=== PATIENT | male | born 1945 | race Caucasian/White ===

== ENCOUNTER 2017-04-24 18:23 | Observation (INO) | payer OTHER, MEDICARE ==
[2017-04-24] MEDS ORDERED: Sodium Chloride 0.9% 10 ML Syringe FLUSH PRN (18:24)
[2017-04-24] MEDS ORDERED: Lactated Ringers 1,000 ML IV ONE (18:24)
[2017-04-24] MEDS ORDERED: Ibuprofen 800 MG Tab PO ONE (18:39)
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
[2017-04-24] MEDS ORDERED: Sodium Chloride 0.9% 100 ML ONE (18:44)
[2017-04-24] MEDS: Piperacillin/Tazobactam 4.5 GM in Sodium Chloride 0.9% 100 ML IV SCH (18:59)
[2017-04-24] MEDS ORDERED: Albuterol/Ipratropium 3.0-0.5 MG/3 ML Neb Soln NEB ONE (19:05)
[2017-04-24] MEDS ORDERED: HYDROmorphone 0.5 MG/0.5 ML Syringe IVPUSH ONE (19:08)
[2017-04-24] MEDS ORDERED: Insulin Aspart 100 Units/ML 3 ML Pen SUBCUT ONE (20:22)
[2017-04-24] MEDS ORDERED: Albuterol 8 GM Inhaler INH PRN (20:32)
[2017-04-24] MEDS: Insulin Detemir 100 Units/ML 3 ML Pen SUBCUT SCH (22:27)
[2017-04-24] MEDS: METOPROLOL TARTRATE 50 MG PO SCH (22:28)
[2017-04-24] MEDS: Lactated Ringers 1,000 ML IV SCH (22:30)
[2017-04-24] MEDS: Doxycycline 100 MG in Sodium Chloride 0.9% 100 ML IV SCH (22:32)
[2017-04-25] MEDS: PRAMIPEXOLE 0.25 MG PO SCH ×2 (00:05→20:15)
[2017-04-25] MEDS ORDERED: Piperacillin/Tazobactam 4.5 GM Vial ONE (00:12)
[2017-04-25] MEDS ORDERED: Sodium Chloride 0.9% 100 ML ONE (00:16)
[2017-04-25] MEDS: Piperacillin/Tazobactam 4.5 GM in Sodium Chloride 0.9% 100 ML IV SCH ×2 (00:36→06:24)
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
[2017-04-25] MEDS: traMADol 50 MG Tab PO PRN ×2 (03:51→08:05)
[2017-04-25] MEDS: Ibuprofen 600 MG Tab PO PRN ×2 (03:52→20:35)
[2017-04-25] MEDS: Lactated Ringers 1,000 ML IV SCH ×2 (08:12→18:12)
[2017-04-25] MEDS ORDERED: Lisinopril 20 MG Tab PO SCH (09:00)
[2017-04-25] MEDS ORDERED: IPRATROPIUM EYEBOTH SCH (09:00)
[2017-04-25] MEDS: Lactobacillus Rhamnosus GG (Probiotic) Cap PO SCH (09:28)
[2017-04-25] MEDS: Loratadine 10 MG Tab PO SCH (09:28)
[2017-04-25] MEDS: IPRATROPIUM INH SCH ×2 (09:29→20:19)
[2017-04-25] MEDS: Vitamin B Complex Tab PO SCH (09:31)
[2017-04-25] MEDS: Doxycycline 100 MG in Sodium Chloride 0.9% 100 ML IV SCH ×3 (10:31→22:07)
[2017-04-25] MEDS ORDERED: Piperacillin/Tazobactam/Dext 4.5 GM in Premix Bag 1 BAG IV SCH (12:00)
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
[2017-04-25] MEDS: Insulin Aspart 100 Units/ML 3 ML Pen SUBCUT SCH ×3 (12:54→20:22)
[2017-04-25] MEDS: METOPROLOL TARTRATE 50 MG PO SCH ×2 (13:01→20:13)
[2017-04-25] MEDS: Multivitamins with Iron/Calcium/Folic Acid/Minerals Tab PO SCH (13:01)
[2017-04-25] MEDS: oxyCODONE 5 MG Tab PO PRN ×3 (13:04→22:41)
[2017-04-25] MEDS: Bacitracin Oint 28.35 GM Tube TOP SCH ×2 (13:04→20:18)
[2017-04-25] MEDS: Acetaminophen 500 MG Tab PO SCH ×2 (13:34→20:05)
[2017-04-25] MEDS: Magnesium Oxide 400 MG Tab PO SCH (13:34)
[2017-04-25] MEDS: ATORVASTATIN 20 MG PO SCH (20:12)
[2017-04-25] MEDS: TRAZODONE 50 MG PO SCH (20:12)
[2017-04-25] MEDS: amLODIPine 10 MG Tab**POM PO SCH (20:16)
[2017-04-25] MEDS: LATANOPROST EYEBOTH SCH (20:17)
[2017-04-25] MEDS: Insulin Detemir 100 Units/ML 3 ML Pen SUBCUT SCH (20:23)
[2017-04-26] MEDS: Lactated Ringers 1,000 ML IV SCH ×2 (03:06→11:10)
[2017-04-26] MEDS: oxyCODONE 5 MG Tab PO PRN ×4 (03:11→19:39)
[2017-04-26] MEDS: Ibuprofen 600 MG Tab PO PRN (03:12)
[2017-04-26] MEDS: IPRATROPIUM INH SCH ×2 (07:17→21:26)
[2017-04-26] MEDS: Lactobacillus Rhamnosus GG (Probiotic) Cap PO SCH (08:47)
[2017-04-26] MEDS: Magnesium Oxide 400 MG Tab PO SCH (08:47)
[2017-04-26] MEDS: Loratadine 10 MG Tab PO SCH (08:47)
[2017-04-26] MEDS: Vitamin B Complex Tab PO SCH (08:47)
[2017-04-26] MEDS: LISINOPRIL 40 MG PO SCH (08:47)
[2017-04-26] MEDS: Acetaminophen 500 MG Tab PO SCH ×3 (08:47→21:32)
[2017-04-26] MEDS: METOPROLOL TARTRATE 50 MG PO SCH ×2 (08:48→21:29)
[2017-04-26] MEDS: Bacitracin Oint 28.35 GM Tube TOP SCH ×2 (08:48→21:25)
[2017-04-26] MEDS: Insulin Aspart 100 Units/ML 3 ML Pen SUBCUT SCH ×4 (08:49→21:20)
[2017-04-26] MEDS ORDERED: Potassium Chloride 20 MEQ Tab.ER PO ONE (10:00)
[2017-04-26] MEDS: Doxycycline 100 MG in Sodium Chloride 0.9% 100 ML IV SCH (10:14)
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
[2017-04-26] MEDS: Multivitamins with Iron/Calcium/Folic Acid/Minerals Tab PO SCH (12:18)
[2017-04-26] MEDS: Insulin Detemir 100 Units/ML 3 ML Pen SUBCUT SCH (21:27)
[2017-04-26] MEDS: ATORVASTATIN 20 MG PO SCH (21:28)
[2017-04-26] MEDS: PRAMIPEXOLE 0.25 MG PO SCH (21:30)
[2017-04-26] MEDS: TRAZODONE 50 MG PO SCH (21:31)
[2017-04-26] MEDS: amLODIPine 10 MG Tab**POM PO SCH (21:32)
[2017-04-26] MEDS: Doxycycline 100 MG Cap PO SCH (21:32)
[2017-04-26] MEDS: LATANOPROST EYEBOTH SCH (21:33)
[2017-04-27] MEDS: oxyCODONE 5 MG Tab PO PRN ×3 (01:53→13:41)
[2017-04-27] MEDS: IPRATROPIUM INH SCH (07:30)
[2017-04-27] MEDS: Insulin Aspart 100 Units/ML 3 ML Pen SUBCUT SCH ×3 (07:47→17:11)
[2017-04-27] MEDS: Bacitracin Oint 28.35 GM Tube TOP SCH (09:08)
[2017-04-27] MEDS: METOPROLOL TARTRATE 50 MG PO SCH (09:08)
[2017-04-27] MEDS: Lactobacillus Rhamnosus GG (Probiotic) Cap PO SCH (09:11)
[2017-04-27] MEDS: Loratadine 10 MG Tab PO SCH (09:12)
[2017-04-27] MEDS: LISINOPRIL 40 MG PO SCH (09:12)
[2017-04-27] MEDS: Magnesium Oxide 400 MG Tab PO SCH (09:12)
[2017-04-27] MEDS: Multivitamins with Iron/Calcium/Folic Acid/Minerals Tab PO SCH (09:13)
[2017-04-27] MEDS: Doxycycline 100 MG Cap PO SCH (09:14)
[2017-04-27] MEDS: Vitamin B Complex Tab PO SCH (09:14)
[2017-04-27] MEDS: Acetaminophen 500 MG Tab PO SCH ×2 (09:14→13:40)
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
[2017-04-27 17:50] VITALS: BP 140/68
--- NOTE | 2017-04-28 08:09 | CR ---
Chest 1V Frontal HISTORY: Fever, shortness of breath. COMPARISON: CT scan 04/23/2017 FINDINGS: There is mild cardiomegaly. Borderline congestive change. No dense infiltrate or effusion.
== END 2017-04-27 17:54 | disposition home or self-care (01) ==
LOC: JP.ED 18:23 → JP.MS 20:27
PROVIDERS: ADMIT Family Medicine; ATTEND Internal Medicine
DX: A77.49 Other ehrlichiosis (principal); I10 Essential (primary) hypertension; E11.9 Type 2 diabetes mellitus without complications; E78.5 Hyperlipidemia, unspecified; J44.9 Chronic obstructive pulmonary disease, unspecified; G47.33 Obstructive sleep apnea (adult) (pediatric); V89.2XXA Person injured in unspecified motor-vehicle accident, traffic, initial encounter; Z79.4 Long term (current) use of insulin; Z79.899 Other long term (current) drug therapy; Z79.2 Long term (current) use of antibiotics; Z95.5 Presence of coronary angioplasty implant and graft; F17.210 Nicotine dependence, cigarettes, uncomplicated; R06.02 Shortness of breath
CPT/HCPCS: 36415; 36600; 71010; 80048; 80053; 81001; 82803; 82962; 83605; 83880; 84484; 85025; 85027; 86140; 86618; 86666; 86753; 94640; 96361; 96365; 96366; 96367; 96375; 99285; A9270; G0378; J1170; J2543; J7030; J7050; J7120; J7620; 99217; 99224; 99225

== ENCOUNTER 2019-03-31 10:53 | Emergency (ER) | payer MEDICARE, BC ==
[2019-03-31] MEDS ORDERED: HYDROmorphone 0.5 MG/0.5 ML Syringe IVPUSH ONE ×3 (11:17→14:53)
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
--- NOTE | 2019-03-31 11:45 | CRLCR ---
INDICATION: Fall with left hip pain. TECHNIQUE: AP view pelvis, 2 views of the left hip. COMPARISON: None. FINDINGS: Hardware components of left total hip arthroplasty. Subtrochanteric obliquely oriented periprosthetic left femur fracture. Mild lateral displacement of the distal fracture fragment measuring approximately 1 cm. No evidence of dislocation of the left hip joint. Moderate to severe right hip joint space narrowing and osteophyte formation. Surgical clips project over the pelvis. Bones are demineralized. IMPRESSION: Periprosthetic subtrochanteric left femur fracture as above. Dictated by Keshawn De La Cruz MD @ Mar 31 2019 11:40AM Signed by Dr. Keshawn De La Cruz @ Mar 31 2019 11:44AM
[2019-03-31 14:40] VITALS: PULSE 47
[2019-03-31 15:13] VITALS: BP 158/56
== END 2019-03-31 15:35 | disposition other institution (70) ==
LOC: JP.ED 10:53
DX: T84.011A Broken internal left hip prosthesis, initial encounter (principal); I10 Essential (primary) hypertension; J44.9 Chronic obstructive pulmonary disease, unspecified; E11.9 Type 2 diabetes mellitus without complications; Z79.4 Long term (current) use of insulin; Z79.51 Long term (current) use of inhaled steroids; W18.2XXA Fall in (into) shower or empty bathtub, initial encounter
CPT/HCPCS: 36415; 51702; 73502; 80053; 85025; 96374; 96376; 99284; J1170

== ENCOUNTER 2019-04-26 16:30 | Inpatient (IN) | payer MEDICARE, BC ==
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
--- NOTE | 2019-04-26 17:56 | CRLCR ---
Indication: Injury and pain Technique: Left hip 3 views Comparison: April 22, 2019 Findings: Bones: Hardware from a left hip arthroplasty remains in satisfactory position. Again demonstrated is an incompletely healed subtrochanteric fracture. Subtle nondisplaced fracture adjacent to the tip of the intramedullary jacqueline is unchanged. No new or worsening fracture. Alignment is normal. Soft tissues: Unremarkable. Impression: No new abnormality and no change from the prior exam. Dictated by Bruce Rosado MD @ Apr 26 2019 5:50PM Signed by Dr. Bruce Rosado @ Apr 26 2019 5:54PM
== END 2019-04-26 17:30 | DRG 914 ==
LOC: JP.MS 16:30
PROVIDERS: ADMIT Internal Medicine; ATTEND Internal Medicine
DX: S79.912A Unspecified injury of left hip, initial encounter (principal); E78.00 Pure hypercholesterolemia, unspecified; I10 Essential (primary) hypertension; J44.9 Chronic obstructive pulmonary disease, unspecified; M19.90 Unspecified osteoarthritis, unspecified site; H54.7 Unspecified visual loss; F17.210 Nicotine dependence, cigarettes, uncomplicated; G47.30 Sleep apnea, unspecified; G89.29 Other chronic pain; W05.0XXA Fall from non-moving wheelchair, initial encounter; M54.9 Dorsalgia, unspecified; E11.9 Type 2 diabetes mellitus without complications; Z79.4 Long term (current) use of insulin; Z79.899 Other long term (current) drug therapy; Z86.73 Personal history of transient ischemic attack (TIA), and cerebral infarction without residual deficits; Z95.5 Presence of coronary angioplasty implant and graft; Z88.8 Allergy status to other drugs, medicaments and biological substances; Z88.5 Allergy status to narcotic agent; Z88.6 Allergy status to analgesic agent
CPT/HCPCS: 36415; 73502-LT; 80053; 85025

== ENCOUNTER 2019-08-01 08:11 | Emergency (ER) | payer OTHER ==
--- NOTE | 2019-08-01 08:24 | EDM.PDOC ---
ED HPI GENERAL MEDICAL PROBLEM - General Chief Complaint: Lower Extremity Injury/Pain Stated Complaint: FELL AT HOME Time Seen by Provider: 08/01/19 08:11 Source of Information: Reports: Patient, EMS History Limitations: Reports: No Limitations - History of Present Illness INITIAL COMMENTS - FREE TEXT/NARRATIVE: 73-year-old male with left hip pain after falling in the shower. He has apparent deformity of the left lower extremity and severe pain just below the left hip. No other injury. Onset: Sudden Duration: Hour(s): (Within the last 2 hours) Location: Reports: Lower Extremity, Left Associated Symptoms: Reports: Confusion Left Hip Pain Score (Numeric/FACES): 8 - Related Data Allergies Allergy/AdvReac Type Severity Reaction Status Date / Time No Known Allergies Allergy Verified 08/01/19 08:22 Home Meds: Home Meds Albuterol [Ventolin HFA] 2 puff INH Q4H PRN 11/21/14 [History] Insulin Glarg,Human.Rec.Analog [Lantus Solostar] 30 unit SUBCUT BEDTIME [History] Lisinopril 20 mg PO DAILY 11/21/14 [History] Metoprolol Tartrate 50 mg PO BID 11/21/14 [History] amLODIPine [Norvasc] 10 mg PO BEDTIME 11/21/14 [History] atorvaSTATin [Lipitor] 40 mg PO BEDTIME 11/21/14 [History] Latanoprost [Xalatan 0.005% Ophth Soln] 1 drop EYEBOTH DAILY 04/23/17 [History] Nitroglycerin 0.4 mg SL ASDIRECTED PRN 11/05/18 [History] Pramipexole Di-HCl [Mirapex] 0.25 mg PO DAILY 11/05/18 [History] traZODone HCl [Trazodone HCl] 50 mg PO DAILY 11/05/18 [History] *Potassium Chloride 99 mg PO BID 08/01/19 [History] Aspirin [Halfprin] 1 tab PO BEDTIME 08/01/19 [History] Budesonide/Formoterol [Symbicort 80-4.5 MCG] 2 puff INH BID 08/01/19 [History] Cholecalciferol (Vitamin D3) [Vitamin D3] 1 tab PO DAILY 08/01/19 [History] Escitalopram [Lexapro] 5 mg PO BEDTIME 08/01/19 [History] Furosemide [Lasix] 20 mg PO DAILY 08/01/19 [History] Glucosam/Chond/Collagen/Hyalur [Glucosamine Chondroitin] 2 cap PO DAILY [History] Multivitamin [Multivitamins] 1 tab PO DAILY 08/01/19 [History] Naproxen 1 tab PO BID PRN 08/01/19 [History] Vitamin B Complex [Super B-50 Complex] 1 cap PO DAILY 08/01/19 [History] Past Medical History HEENT History: Reports: Cataract, Glaucoma, Hard of Hearing, Impaired Vision Cardiovascular History: Reports: High Cholesterol, Hypertension Respiratory History: Reports: COPD, Sleep Apnea Gastrointestinal History: Reports: None Musculoskeletal History: Reports: Back Pain, Chronic, Osteoarthritis, Other ( See Below) Other Musculoskeletal History: L hip pain Neurological History: Reports: CVA Psychiatric History: Reports: None Endocrine/Metabolic History: Reports: Diabetes, Type II Hematologic History: Reports: None Immunologic History: Reports: None Oncologic (Cancer) History: Reports: Colon, Metastatic, Prostate, Renal Dermatologic History: Reports: None - Past Surgical History Head Surgeries/Procedures: Reports: None HEENT Surgical History: Reports: Cataract Surgery Cardiovascular Surgical History: Reports: Coronary Artery Stent GI Surgical History: Reports: Colonoscopy, ERCP Male Surgical History: Reports: Other (See Below) Musculoskeletal Surgical History: Reports: Hip Replacement Social & Family History - Caffeine Use Caffeine Use: Reports: Coffee Review of Systems - Review of Systems Review Of Systems: See Below Constitutional: Denies: Fever Respiratory: Denies: Shortness of Breath Cardiovascular: Denies: Chest Pain, Palpitations Musculoskeletal: Reports: Other (Severe left hip and leg pain, especially with movement) Skin: Denies: Bruising ED EXAM, GENERAL - Physical Exam Exam: See Below Exam Limited By: No Limitations General Appearance: Alert, Moderate Distress (Moderate to severe distress with any movement, fairly comfortable when lying still) Respiratory/Chest: No Respiratory Distress Cardiovascular: Regular Rate, Rhythm GI/Abdominal: Soft, Non-Tender Extremities: Other (Left leg shows internal rotation and slight shortening, severe tenderness to any palpation of the mid to upper femur left side) Course - Vital Signs Last Recorded V/S: Last Vital Signs Temp 97.3 F 08/01/19 08:22 Pulse 83 08/01/19 10:14 Resp 16 08/01/19 10:14 BP 143/66 H 08/01/19 10:14 Pulse Ox 92 L 08/01/19 10:14 - Orders/Labs/Meds Meds: Medications Discontinued Medications Generic Name Dose Route Start Last Admin Trade Name Anastasia PRN Reason Stop Dose Admin Hydromorphone HCl 1 mg 08/01/19 09:34 08/01/19 09:43 Dilaudid IVPUSH 08/01/19 09:35 1 mg ONETIME ONE Administration - Re-Assessments/Exams Free Text/Narrative Re-Assessment/Exam: 08/01/19 08:52 X-ray confirmed a new spiral fracture through the femur at the distal and of his prosthesis. These films were reviewed by our orthopedic surgeon Dr. Pope. 08/01/19 10:16 Our facility does not have the proper orthopedic supplies to complete the surgery. [facility] in [place] was contacted, Dr. Robertson kindly accepted his transfer at 09:55, he will be reevaluated in the emergency room prior to admission for orthopedic assessment and care. An additional 1 mg of IV Dilaudid was needed. Departure - Departure Time of Disposition: 10:59 Disposition: DC/Tfer to Other Clinical Impression: Periprosthetic fracture of hip Qualifiers: Encounter type: initial encounter Qualified Code(s): M97.8XXA - Periprosthetic fracture around other internal prosthetic joint, initial encounter - Discharge Information Referrals: PCP,None [Primary Care Provider] - Forms: ED Department Discharge Care Plan Goals: Patient is to be transferred by EMS to [facility] for orthopedic evaluation and definitive care for a spiral left femur fracture, periprosthetic.
--- NOTE | 2019-08-01 09:31 | CR ---
Hip Min 2V or 3V Lt CLINICAL HISTORY: Left hip pain FINDINGS: Patient has a total left hip arthroplasty. There has been revision with a subtrochanteric fracture that was reduced. The there is now a new oblique displaced fracture of the mid femur towards the distal aspect of the intramedullary jacqueline IMPRESSION: New oblique displaced fracture through the mid femoral shaft near the distal aspect of the intramedullary jacqueline.
[2019-08-01] MEDS ORDERED: HYDROmorphone 1 MG/ML Syringe IVPUSH ONE (09:34)
[2019-08-01 10:15] VITALS: BP 143/66; PULSE 83
== END 2019-08-01 11:00 | disposition other institution (70) ==
LOC: JP.ED 08:11
DX: M97.8XXA Periprosthetic fracture around other internal prosthetic joint, initial encounter (principal); I10 Essential (primary) hypertension; E03.9 Hypothyroidism, unspecified; E11.9 Type 2 diabetes mellitus without complications; J44.9 Chronic obstructive pulmonary disease, unspecified; Z79.51 Long term (current) use of inhaled steroids; Z79.899 Other long term (current) drug therapy
CPT/HCPCS: 73502; 96374; 99285; J1170

== ENCOUNTER 2020-06-21 11:25 | Emergency (ER) | payer BC, MEDICARE, OTHER ==
[2020-06-21 11:44] VITALS: BP 167/89; PULSE 72
[2020-06-21] MEDS ORDERED: HYDROmorphone 1 MG/ML Syringe IM ONE (12:09)
--- NOTE | 2020-06-21 13:07 | EDM.PDOC ---
ED HPI GENERAL MEDICAL PROBLEM - General Chief Complaint: Back Pain or Injury Stated Complaint: BACK PAIN Time Seen by Provider: 06/21/20 11:50 Source of Information: Reports: Patient, Family History Limitations: Reports: Other (Patient has Alzheimer's dementia limiting the full scope of his history.) - History of Present Illness INITIAL COMMENTS - FREE TEXT/NARRATIVE: Nadir is a 74-year-old male who is a [facility] patient presenting to the ED for evaluation of low back pain. The patient reportedly had a fall 3 weeks ago resulting in acute low back pain that has been migrating between the lumbar and thoracic spine and worsening. The patient has Alzheimer's dementia limiting his reporting of pain, however, his daughter accompanies him and states that he has been having increasing pain especially in the low back since the fall. The patient cries out with any jarring movements like hitting bumps in the vehicle. He has not had any change of bowel or bladder control issues. He normally attends the [facility], however, they referred him to the local ER for evaluation. The patient does have a history of radiation to the lower spine for prostate cancer. The daughter is also concerned that perhaps there is metastasis of the prostate cancer to the lumbar spine causing the pain. He denies any numbness or tingling in the legs. He denies any weakness of the leg s. He denies any saddle anesthesia. He denies any other injury from the fall. Context: Reports: Trauma - Related Data Allergies Allergy/AdvReac Type Severity Reaction Status Date / Time No Known Allergies Allergy Verified 06/21/20 11:48 Home Meds: Home Meds Albuterol [Ventolin HFA] 2 puff INH Q4H PRN 11/21/14 [History] Insulin Glarg,Human.Rec.Analog [Lantus Solostar] 30 unit SUBCUT BEDTIME 11/21/14 [History] Lisinopril 10 mg PO DAILY 11/21/14 [History] Metoprolol Tartrate 100 mg PO BID 11/21/14 [History] amLODIPine [Norvasc] 5 mg PO BEDTIME 11/21/14 [History] atorvaSTATin [Lipitor] 80 mg PO BEDTIME 11/21/14 [History] Latanoprost [Xalatan 0.005% Ophth Soln] 1 drop EYEBOTH DAILY 04/23/17 [History] Nitroglycerin 0.4 mg SL ASDIRECTED PRN 11/05/18 [History] Pramipexole Di-HCl [Mirapex] 0.25 mg PO DAILY 11/05/18 [History] traZODone HCl [Trazodone HCl] 100 mg PO DAILY 11/05/18 [History] *Potassium Chloride 99 mg PO DAILY 08/01/19 [History] Aspirin [Halfprin] 81 mg PO BEDTIME 08/01/19 [History] Budesonide/Formoterol [Symbicort 80-4.5 MCG] 2 puff INH BID 08/01/19 [History] Cholecalciferol (Vitamin D3) [Vitamin D3] 6,000 unit PO DAILY 08/01/19 [History] Escitalopram [Lexapro] 10 mg PO BEDTIME 08/01/19 [History] Furosemide [Lasix] 20 mg PO DAILY 08/01/19 [History] Glucosam/Chond/Collagen/Hyalur [Glucosamine Chondroitin] 1 cap PO DAILY 08/01/19 [History] Multivitamin [Multivitamins] 1 tab PO DAILY 08/01/19 [History] Naproxen 1 tab PO BID PRN 08/01/19 [History] Vitamin B Complex [Super B-50 Complex] 1 cap PO DAILY 08/01/19 [History] Acetaminophen [Tylenol Extra Strength] 1,000 mg PO Q6H PRN 09/19/19 [History] Calcium Carbonate/Vitamin D3 [Calcium 600 + Vit D 200] 1 tab PO DAILY 09/19/19 [History] Clopidogrel [Plavix] 75 mg PO DAILY 09/19/19 [History] Leuprolide [Lupron Depot] 22.5 mg IM .EVERY 6 MONTHS 09/19/19 [History] Lidocaine [Lidoderm] 1 patch TOP Q12H 09/19/19 [History] Loperamide [Imodium] 2 mg PO ASDIRECTED 09/19/19 [History] Cyclobenzaprine HCl 10 mg PO Q8HR PRN 30 Days #30 tablet 06/21/20 [Rx] Past Medical History HEENT History: Reports: Cataract, Glaucoma, Hard of Hearing, Impaired Vision Cardiovascular History: Reports: High Cholesterol, Hypertension, Stents Respiratory History: Reports: COPD, Sleep Apnea Gastrointestinal History: Reports: None Genitourinary History: Reports: Urinary Incontinence Musculoskeletal History: Reports: Back Pain, Chronic, Osteoarthritis, Other (See Below) Other Musculoskeletal History: L hip pain Neurological History: Reports: Alzheimers Disease, CVA, Other (See Below) Other Neuro History: dementia Psychiatric History: Reports: None Endocrine/Metabolic History: Reports: Diabetes, Type II Hematologic History: Reports: Anticoagulation Therapy, Blood Transfusion(s) Immunologic History: Reports: None Oncologic (Cancer) History: Reports: Colon, Metastatic, Prostate, Renal Dermatologic History: Reports: None - Past Surgical History Head Surgeries/Procedures: Reports: None HEENT Surgical History: Reports: Cataract Surgery Cardiovascular Surgical History: Reports: Coronary Artery Stent Respiratory Surgical History: Reports: None GI Surgical History: Reports: Colonoscopy, ERCP Endocrine Surgical History: Reports: None Musculoskeletal Surgical History: Reports: Hip Replacement Other Musculoskeletal Surgeries/Procedures:: left hip and femur ORIF Oncologic Surgical History: Reports: None Dermatological Surgical History: Reports: None Social & Family History - Tobacco Use Tobacco Use Status *Q: Current Every Day Tobacco User Years of Tobacco use: 60 Packs/Tins Daily: 1 Used Tobacco, but Quit: No Second Hand Smoke Exposure: No - Caffeine Use Caffeine Use: Reports: Coffee Other Caffeine Use: 2 cups - Alcohol Use Days Per Week of Alcohol Use: 7 Number of Drinks Per Day: 2 Total Drinks Per Week: 14 - Recreational Drug Use Recreational Drug Use: No ED ROS GENERAL - Review of Systems Review Of Systems: See Below Constitutional: Reports: No Symptoms HEENT: Reports: No Symptoms Respiratory: Reports: No Symptoms Cardiovascular: Reports: No Symptoms Endocrine: Reports: No Symptoms GI/Abdominal: Reports: No Symptoms : Reports: No Symptoms Musculoskeletal: Reports: Back Pain (Migrating from the lumbar spine to thoracic spine. The initial injury involve the lumbar spine.) Skin: Reports: No Symptoms Neurological: Reports: Other (Dementia, Alzheimer's type.) Psychiatric: Reports: No Symptoms Hematologic/Lymphatic: Reports: No Symptoms Immunologic: Reports: No Symptoms ED EXAM,LOWER BACK PAIN/INJURY - Physical Exam Exam: See Below Exam Limited By: No Limitations General Appearance: Alert, Moderate Distress Eye Exam: Bilateral Eye: EOMI, PERRL Head: Atraumatic, Normocephalic Neck: Normal Inspection, Supple, Non-Tender, Full Range of Motion Respiratory/Chest: No Respiratory Distress, Lungs Clear, Normal Breath Sounds, No Accessory Muscle Use, Chest Non-Tender Cardiovascular: Normal Peripheral Pulses, Regular Rate, Rhythm, No JVD, No Murmur Back Exam: Decreased Range of Motion (Due to pain and muscle spasm), Muscle Spasm, Paraspinal Tenderness, Vertebral Tenderness (Involving the lower 3-4 lumbar vertebrae. Significant paraspinal muscle spasm and tenderness as well.) Extremities: Normal Inspection, Normal Range of Motion, No Pedal Edema Neurological: Alert, Normal Mood/Affect, Normal Dorsiflexion, CN II-XII Intact, Normal Plantar Flexion, No Motor/Sensory Deficits, Oriented x 3, Abnormal Gait (Antalgic gait) Psychiatric: Normal Affect, Normal Mood Skin Exam: Warm, Dry, Intact Lymphatic: No Adenopathy Course - Vital Signs Last Recorded V/S: Last Vital Signs Temp 36.4 C 06/21/20 11:48 Pulse 72 06/21/20 11:48 Resp 16 06/21/20 11:48 BP 167/89 H 06/21/20 11:48 Pulse Ox 98 06/21/20 11:48 - Orders/Labs/Meds Meds: Medications Discontinued Medications Generic Name Dose Route Start Last Admin Trade Name Freq PRN Reason Stop Dose Admin Hydromorphone HCl 1 mg 06/21/20 12:09 06/21/20 12:12 Dilaudid IM 06/21/20 12:10 1 mg ONETIME ONE Administration - Radiology Interpretation Free Text/Narrative:: CT of the lumbar spine demonstrated significant central spinal stenosis at L1- L2, mild central stenosis L2-L3, L3-L4, and L4-L5 with moderate central stenosis at L5-S1. In addition, there is significant neuroforaminal impingement at L4- L5 and L5-S1 bilaterally. No acute fractures identified. No compression/wedging noted in the vertebrae. Departure - Departure Time of Disposition: 16:29 Disposition: Home, Self-Care 01 Condition: Good Clinical Impression: Spinal stenosis of lumbar region, Lumbar disc disease with radiculopathy - Discharge Information *PRESCRIPTION DRUG MONITORING PROGRAM REVIEWED*: Not Applicable *COPY OF PRESCRIPTION DRUG MONITORING REPORT IN PATIENT VENUS: Not Applicable Prescriptions: Cyclobenzaprine HCl 10 mg PO Q8HR PRN 30 Days #30 tablet PRN Reason: Muscle Spasm Instructions: Spinal Stenosis, Lumbosacral Radiculopathy Referrals: Germán Antoine Sr, MD [Primary Care Provider] - Forms: ED Department Discharge Care Plan Goals: Please stop the trazodone. We will use a cyclobenzaprine 10 mg every 8 hours as needed for muscle spasm control. This may make him somnolent. I had like him to follow-up with Dr. Antoine as needed. You may double up on the use of the Lidoderm patch. Should he develop any significant weakness, numbness or tingling, or worsening please return to the ED for reevaluation. Sepsis Event Note (ED) - Evaluation Sepsis Screening Result: No Definite Risk - Focused Exam Vital Signs: Vital Signs Temp Pulse Resp BP Pulse Ox 06/21/20 11:48 36.4 C 72 16 167/89 H 98 06/21/20 11:42 36.4 C 72 16 167/89 H 98 - Problem List & Annotations (1) Lumbar disc disease with radiculopathy SNOMED Code(s): 034647262 Code(s): M51.16 - INTERVERTEBRAL DISC DISORDERS W RADICULOPATHY, LUMBAR REGION Status: Acute Priority: Medium Current Visit: Yes (2) Spinal stenosis of lumbar region SNOMED Code(s): 04877401 Code(s): M48.061 - SPINAL STENOSIS, LUMBAR REGION WITHOUT NEUROGENIC DONTRELL Status: Acute Priority: Medium Current Visit: Yes Qualifiers: Neurogenic claudication status: unspecified Qualified Code(s): M48.061 - Spinal stenosis, lumbar region without neurogenic claudication - Problem List Review Problem List Initiated/Reviewed/Updated: Yes - Assessment/Plan Plan: We will initiate antispasmodic therapy with cyclobenzaprine 10 mg every 8 hours as needed. This will take place of the trazodone that the patient uses at nighttime for sleep. In addition, I instructed the patient to double up on the use of the Lidoderm patches to get better coverage of the area of pain. Indications return to the ED were discussed. This time patient stable for discharge in satisfactory condition.
--- NOTE | 2020-06-21 13:48 | CT ---
Lumbar Spine wo Cont CLINICAL HISTORY: Increasing back pain, previous fall COMPARISON: None available TECHNIQUE: Multiple contiguous axial sections were obtained of the lumbar spine without the IV infusion of contrast material This was followed by sagittal and coronal MPRs. Auto dosage reduction and iterative reconstruction techniques employed. FINDINGS: Sagittal images show the lumbar vertebral body heights to be maintained throughout. There is some spondylosis most notable at L2-3. Alignment is maintained. Axial images show moderate concentric disc bulging at L1-2 with some facet hypertrophy. This causes moderate central canal stenosis. There is diffuse bulging of the L2-3 disc with facet hypertrophy causing mild central canal stenosis. There is concentric disc bulging at L3-4 with facet hypertrophy causing mild central canal stenosis. There is concentric disc bulging at L4-5 with facet hypertrophy causing moderate central canal stenosis and encroachment on the neural foramina bilaterally. There is concentric disc bulging at L5-S1 with facet hypertrophy causing mild central canal stenosis with encroachment on the lateral recesses and neural foramina greater on the right. Incidental note of moderate atheromatous changes in the aorta. IMPRESSION: No fracture or dislocation Diffuse degenerative disc disease and facet osteoarthropathy Multiple levels of central canal stenosis as well as lateral recess and neural foraminal encroachment
== END 2020-06-21 16:40 | disposition home or self-care (01) ==
LOC: JP.ED 11:25
DX: M48.061 Spinal stenosis, lumbar region without neurogenic claudication (principal); M51.16 Intervertebral disc disorders with radiculopathy, lumbar region; E78.00 Pure hypercholesterolemia, unspecified; I10 Essential (primary) hypertension; J44.9 Chronic obstructive pulmonary disease, unspecified; M19.90 Unspecified osteoarthritis, unspecified site; G30.9 Alzheimer's disease, unspecified; F02.80 Dementia in other diseases classified elsewhere, unspecified severity, without behavioral disturbance, psychotic disturbance, mood disturbance, and anxiety; E11.9 Type 2 diabetes mellitus without complications; F17.210 Nicotine dependence, cigarettes, uncomplicated; Z95.5 Presence of coronary angioplasty implant and graft; Z86.73 Personal history of transient ischemic attack (TIA), and cerebral infarction without residual deficits; Z79.4 Long term (current) use of insulin; Z79.82 Long term (current) use of aspirin; Z79.899 Other long term (current) drug therapy
CPT/HCPCS: 72131; 96372; 99283; J1170

== ENCOUNTER 2022-09-08 13:29 | Emergency (ER) | payer OTHER ==
[2022-09-08] MEDS ORDERED: Albuterol/Ipratropium 3.0-0.5 MG/3 ML Neb Soln NEB ONE (14:51)
[2022-09-08] MEDS ORDERED: Furosemide 40 MG/4 ML VIAL IVPUSH ONE (14:51)
[2022-09-08 14:55] LABS: CORONAVIRUS COVID-19 NAA POSITIVE (NEGATIVE)
[2022-09-08 17:42] VITALS: BP 144/72; PULSE 91
== END 2022-09-08 22:34 | disposition home or self-care (01) ==
LOC: JP.ED 13:29
DX: U07.1 COVID-19 (principal); J44.9 Chronic obstructive pulmonary disease, unspecified; I11.0 Hypertensive heart disease with heart failure; I50.21 Acute systolic (congestive) heart failure; G30.9 Alzheimer's disease, unspecified; F02.C0 Dementia in other diseases classified elsewhere, severe, without behavioral disturbance, psychotic disturbance, mood disturbance, and anxiety; C80.1 Malignant (primary) neoplasm, unspecified; R09.02 Hypoxemia; E78.00 Pure hypercholesterolemia, unspecified; M19.90 Unspecified osteoarthritis, unspecified site; E11.9 Type 2 diabetes mellitus without complications; Z87.891 Personal history of nicotine dependence; Z79.01 Long term (current) use of anticoagulants; Z79.4 Long term (current) use of insulin; Z79.899 Other long term (current) drug therapy; Z79.82 Long term (current) use of aspirin
CPT/HCPCS: 0241U; 36415; 36600; 71045; 80048; 82803; 83880; 85025; 93005; 94640; 96374; 99285; J1940; J7620

== ENCOUNTER 2022-10-02 08:08 | Emergency (ER) | payer OTHER ==
[2022-10-02] MEDS ORDERED: HYDROmorphone 0.5 MG/0.5 ML Syringe IVPUSH ONE ×2 (08:14→09:45)
[2022-10-02 11:08] VITALS: BP 142/68; PULSE 90
== END 2022-10-02 10:45 | disposition other institution (70) ==
LOC: JP.ED 08:08
DX: S72.141A Displaced intertrochanteric fracture of right femur, initial encounter for closed fracture (principal); J44.9 Chronic obstructive pulmonary disease, unspecified; I25.10 Atherosclerotic heart disease of native coronary artery without angina pectoris; I10 Essential (primary) hypertension; E11.9 Type 2 diabetes mellitus without complications; M19.90 Unspecified osteoarthritis, unspecified site; Z79.4 Long term (current) use of insulin; W06.XXXA Fall from bed, initial encounter
CPT/HCPCS: 36415; 73502; 80048; 85025; 96374; 96376; 99285; J1170

== ENCOUNTER 2022-10-29 18:51 | Inpatient (IN) | payer OTHER, MEDICARE ==
[2022-10-29 19:57] LABS: ESTIMATED GFR 77 mL/min (>60)
[2022-10-29] MEDS ORDERED: Sodium Chloride 0.9% 1,000 ML IV SCH (20:15)
[2022-10-29] MEDS ORDERED: cefTRIAXone 1 GM in Sodium Chloride 0.9% 50 ML IV ONE (20:35)
[2022-10-29] MEDS ORDERED: 50% Dextrose in Water 50 ML Syringe IVPUSH PRN (21:33)
[2022-10-29] MEDS ORDERED: Nitroglycerin 0.4 MG Tab.SL SL PRN (21:33)
[2022-10-29] MEDS ORDERED: Glucagon,Human Recombinant 1 MG Vial IM PRN (21:33)
[2022-10-29] MEDS ORDERED: Albuterol 90 MCG/6.7 GM Inhaler INH PRN (21:33)
[2022-10-29] MEDS ORDERED: Clotrimazole 1% Crm 30 GM Tube TOP SCH (21:45)
[2022-10-29] MEDS: cefTRIAXone 1 GM in Sodium Chloride 0.9% 50 ML IV SCH (22:31)
[2022-10-30] MEDS: Lidocaine 5% 700 MG Patch TOP SCH ×2 (03:35→21:21)
[2022-10-30] MEDS: Cyclobenzaprine 10 MG Tab PO PRN ×2 (03:45→15:49)
[2022-10-30] MEDS ORDERED: HYDROmorphone 0.5 MG/0.5 ML Syringe IVPUSH ONE (03:49)
[2022-10-30] MEDS ORDERED: HYDROmorphone 0.5 MG/0.5 ML Syringe ONE (03:51)
[2022-10-30] MEDS: Albuterol/Ipratropium 3.0-0.5 MG/3 ML Neb Soln INH PRN (04:04)
[2022-10-30] MEDS ORDERED: Furosemide 20 MG/2 ML VIAL IVPUSH ONE (04:16)
[2022-10-30] MEDS ORDERED: Acetaminophen 325 MG Tab PO ONE (04:28)
[2022-10-30] MEDS ORDERED: Sodium Chloride 0.9% 1,000 ML IV SCH (04:30)
[2022-10-30] MEDS ORDERED: Ibuprofen 400 MG Tab PO ONE (05:03)
[2022-10-30 05:14] LABS: ESTIMATED GFR 94 mL/min (>60)
[2022-10-30] MEDS: Formoterol/Mometasone 200-5 MCG 8.8 GM Inhaler IH SCH ×2 (08:05→21:18)
[2022-10-30] MEDS: HYDROmorphone 1 MG/ML Syringe IVPUSH PRN ×2 (08:06→23:48)
[2022-10-30] MEDS: Pantoprazole 40 MG Tab.CR PO SCH (08:06)
[2022-10-30] MEDS ORDERED: Formoterol/Mometasone 200-5 MCG 8.8 GM Inhaler IH SCH (09:00)
[2022-10-30] MEDS ORDERED: Clotrimazole 1% Crm 30 GM Tube TOP SCH (09:00)
[2022-10-30] MEDS: Losartan 50 MG Tab PO SCH (09:35)
[2022-10-30] MEDS: Calcium Carbonate/Vitamin D3 1500 MG-400 Units Tab PO SCH ×2 (09:35→21:18)
[2022-10-30] MEDS: atorvaSTATin 20 MG Tab PO SCH (09:36)
[2022-10-30] MEDS: Apixaban 5 MG Tab PO SCH ×2 (09:36→21:19)
[2022-10-30] MEDS: Metoprolol Tartrate 50 MG Tab PO SCH ×2 (09:36→21:19)
[2022-10-30] MEDS: Acetaminophen 500 MG Tab PO SCH ×2 (09:36→21:21)
[2022-10-30] MEDS: Furosemide 20 MG Tab PO SCH (09:36)
[2022-10-30] MEDS: Multivitamins with Iron/Calcium/Folic Acid/Minerals Tab PO SCH (09:37)
[2022-10-30] MEDS: Pramipexole 0.5 MG Tab PO SCH (09:37)
[2022-10-30] MEDS: Cholecalciferol (Vitamin D3) 25 MCG Tab PO SCH (09:37)
[2022-10-30] MEDS: Vitamin B Complex Tab PO SCH (09:37)
[2022-10-30] MEDS: Timolol Maleate 0.5% Ophth Soln 5 ML Bottle EYEBOTH SCH ×2 (09:38→14:22)
[2022-10-30] MEDS: Ketoconazole 2% Crm 30 GM Tube TOP SCH ×2 (09:38→14:31)
[2022-10-30 11:05] LABS: CORONAVIRUS COVID-19 NAA NEGATIVE (NEGATIVE)
[2022-10-30] MEDS: Tamsulosin 0.4 MG Cap.ER PO SCH (21:19)
[2022-10-30] MEDS: Aspirin 81 MG Tab.EC PO SCH (21:19)
[2022-10-30] MEDS: amLODIPine 5 MG Tab PO SCH (21:20)
[2022-10-30] MEDS: traZODone 50 MG Tab PO SCH (21:20)
[2022-10-30] MEDS: Escitalopram 10 MG Tab PO SCH (21:20)
[2022-10-30] MEDS: Insulin Glargine,Human Rec. Analog 100 Units/ML 3 ML Pen SUBCUT SCH (21:20)
[2022-10-30] MEDS: cefTRIAXone 1 GM in Sodium Chloride 0.9% 50 ML IV SCH (21:27)
[2022-10-31] MEDS: Formoterol/Mometasone 200-5 MCG 8.8 GM Inhaler IH SCH ×2 (07:12→20:46)
[2022-10-31] MEDS: Pantoprazole 40 MG Tab.CR PO SCH (07:35)
[2022-10-31 08:02] LABS: HEMOGLOBIN A1C 6.9 % (4.5-6.2)
[2022-10-31] MEDS: Cholecalciferol (Vitamin D3) 25 MCG Tab PO SCH (09:24)
[2022-10-31] MEDS: Pramipexole 0.5 MG Tab PO SCH (09:24)
[2022-10-31] MEDS: Multivitamins with Iron/Calcium/Folic Acid/Minerals Tab PO SCH (09:24)
[2022-10-31] MEDS: Furosemide 20 MG Tab PO SCH (09:24)
[2022-10-31] MEDS: Vitamin B Complex Tab PO SCH (09:24)
[2022-10-31] MEDS: Calcium Carbonate/Vitamin D3 1500 MG-400 Units Tab PO SCH ×2 (09:24→20:38)
[2022-10-31] MEDS: Apixaban 5 MG Tab PO SCH ×2 (09:25→20:41)
[2022-10-31] MEDS: Ketoconazole 2% Crm 30 GM Tube TOP SCH (09:25)
[2022-10-31] MEDS: atorvaSTATin 20 MG Tab PO SCH (09:25)
[2022-10-31] MEDS: Timolol Maleate 0.5% Ophth Soln 5 ML Bottle EYEBOTH SCH (09:26)
[2022-10-31] MEDS: Acetaminophen 500 MG Tab PO SCH ×2 (09:26→20:46)
[2022-10-31] MEDS: Losartan 50 MG Tab PO SCH (09:28)
[2022-10-31 09:29] LABS: ESTIMATED GFR 77 mL/min (>60)
[2022-10-31] MEDS: Metoprolol Tartrate 50 MG Tab PO SCH ×2 (09:30→20:43)
[2022-10-31] MEDS: Acetaminophen/Codeine 300-30 MG Tab PO PRN ×2 (11:25→20:33)
[2022-10-31] MEDS: LORazepam 0.5 MG Tab PO SCH ×2 (12:06→17:50)
[2022-10-31] MEDS ORDERED: Magnesium Hydroxide 400 MG/5 ML Susp 30 ML Cup PO PRN (15:51)
[2022-10-31] MEDS ORDERED: Docusate Sodium 100 MG Cap PO PRN (15:55)
[2022-10-31] MEDS: Tamsulosin 0.4 MG Cap.ER PO SCH (20:39)
[2022-10-31] MEDS: Escitalopram 10 MG Tab PO SCH (20:42)
[2022-10-31] MEDS: Aspirin 81 MG Tab.EC PO SCH (20:42)
[2022-10-31] MEDS: amLODIPine 5 MG Tab PO SCH (20:44)
[2022-10-31] MEDS: traZODone 50 MG Tab PO SCH (20:45)
[2022-10-31] MEDS: Insulin Glargine,Human Rec. Analog 100 Units/ML 3 ML Pen SUBCUT SCH (20:54)
[2022-10-31] MEDS ORDERED: Zolpidem 5 MG Tab PO ONE (21:00)
[2022-10-31] MEDS: cefTRIAXone 1 GM, Lidocaine 1% 2.1 ML IM SCH ×2 (22:14)
[2022-10-31] MEDS: Lidocaine 5% 700 MG Patch TOP SCH (22:16)
[2022-10-31] MEDS ORDERED: Glucagon,Human Recombinant 1 MG Vial IM PRN (23:58)
[2022-10-31] MEDS ORDERED: 50% Dextrose in Water 50 ML Syringe IVPUSH PRN (23:58)
[2022-11-01] MEDS: LORazepam 0.5 MG Tab PO SCH ×2 (04:33→05:05)
[2022-11-01] MEDS: Acetaminophen/Codeine 300-30 MG Tab PO PRN ×3 (05:05→22:33)
[2022-11-01] MEDS: Albuterol/Ipratropium 3.0-0.5 MG/3 ML Neb Soln INH PRN (05:06)
[2022-11-01] MEDS: Formoterol/Mometasone 200-5 MCG 8.8 GM Inhaler IH SCH ×2 (06:57→20:20)
[2022-11-01] MEDS: Insulin Lispro 100 Unit/ML 3 ML KwikPen SUBCUT SCH ×4 (08:01→22:16)
[2022-11-01] MEDS: atorvaSTATin 20 MG Tab PO SCH (08:14)
[2022-11-01] MEDS: Pantoprazole 40 MG Tab.CR PO SCH (08:14)
[2022-11-01] MEDS: Calcium Carbonate/Vitamin D3 1500 MG-400 Units Tab PO SCH ×2 (08:14→20:20)
[2022-11-01] MEDS: Metoprolol Tartrate 50 MG Tab PO SCH ×2 (08:15→20:19)
[2022-11-01] MEDS: Losartan 50 MG Tab PO SCH (08:15)
[2022-11-01] MEDS: Vitamin B Complex Tab PO SCH (08:15)
[2022-11-01] MEDS: Multivitamins with Iron/Calcium/Folic Acid/Minerals Tab PO SCH (08:16)
[2022-11-01] MEDS: Cholecalciferol (Vitamin D3) 25 MCG Tab PO SCH (08:16)
[2022-11-01] MEDS: Ketoconazole 2% Crm 30 GM Tube TOP SCH (08:16)
[2022-11-01] MEDS: Furosemide 20 MG Tab PO SCH (08:16)
[2022-11-01] MEDS: Apixaban 5 MG Tab PO SCH ×2 (08:16→20:20)
[2022-11-01] MEDS: Timolol Maleate 0.5% Ophth Soln 5 ML Bottle EYEBOTH SCH (08:17)
[2022-11-01] MEDS: Pramipexole 0.5 MG Tab PO SCH (10:13)
[2022-11-01] MEDS ORDERED: Magnesium Hydroxide 400 MG/5 ML Susp 30 ML Cup PO PRN (11:05)
[2022-11-01] MEDS: Amoxicillin 500 MG Cap PO SCH ×2 (14:38→20:16)
[2022-11-01] MEDS: Melatonin 3 MG Tab PO SCH (20:17)
[2022-11-01] MEDS: Escitalopram 10 MG Tab PO SCH (20:19)
[2022-11-01] MEDS: Tamsulosin 0.4 MG Cap.ER PO SCH (20:20)
[2022-11-01] MEDS: Aspirin 81 MG Tab.EC PO SCH (20:20)
[2022-11-01] MEDS: traZODone 50 MG Tab PO SCH (20:21)
[2022-11-01] MEDS: amLODIPine 5 MG Tab PO SCH (20:22)
[2022-11-01] MEDS: cefTRIAXone 1 GM, Lidocaine 1% 2.1 ML IM SCH ×2 (21:11)
[2022-11-01] MEDS: Insulin Glargine,Human Rec. Analog 100 Units/ML 3 ML Pen SUBCUT SCH (22:15)
[2022-11-01] MEDS: Lidocaine 5% 700 MG Patch TOP SCH (22:15)
[2022-11-02] MEDS: Formoterol/Mometasone 200-5 MCG 8.8 GM Inhaler IH SCH ×2 (07:07→20:54)
[2022-11-02] MEDS: Insulin Lispro 100 Unit/ML 3 ML KwikPen SUBCUT SCH ×4 (07:56→20:59)
[2022-11-02] MEDS: atorvaSTATin 20 MG Tab PO SCH (08:04)
[2022-11-02] MEDS: Amoxicillin 500 MG Cap PO SCH ×2 (08:04→14:19)
[2022-11-02] MEDS: Furosemide 20 MG Tab PO SCH (08:05)
[2022-11-02] MEDS: Pramipexole 0.5 MG Tab PO SCH (08:05)
[2022-11-02] MEDS: Cholecalciferol (Vitamin D3) 25 MCG Tab PO SCH (08:05)
[2022-11-02] MEDS: Losartan 50 MG Tab PO SCH (08:05)
[2022-11-02] MEDS: Vitamin B Complex Tab PO SCH (08:05)
[2022-11-02] MEDS: Multivitamins with Iron/Calcium/Folic Acid/Minerals Tab PO SCH (08:06)
[2022-11-02] MEDS: Calcium Carbonate/Vitamin D3 1500 MG-400 Units Tab PO SCH ×2 (08:06→20:53)
[2022-11-02] MEDS: Metoprolol Tartrate 50 MG Tab PO SCH ×2 (08:06→20:56)
[2022-11-02] MEDS: Pantoprazole 40 MG Tab.CR PO SCH (08:06)
[2022-11-02] MEDS: Apixaban 5 MG Tab PO SCH ×2 (08:07→20:55)
[2022-11-02] MEDS: Ketoconazole 2% Crm 30 GM Tube TOP SCH (08:07)
[2022-11-02] MEDS: Timolol Maleate 0.5% Ophth Soln 5 ML Bottle EYEBOTH SCH (08:08)
[2022-11-02] MEDS: Acetaminophen/Codeine 300-30 MG Tab PO PRN ×2 (09:38→19:39)
[2022-11-02] MEDS ORDERED: Amoxicillin/Clavulanate K 875-125 MG Tab PO ONE (20:00)
[2022-11-02] MEDS: Escitalopram 10 MG Tab PO SCH (20:55)
[2022-11-02] MEDS: Aspirin 81 MG Tab.EC PO SCH (20:55)
[2022-11-02] MEDS: Tamsulosin 0.4 MG Cap.ER PO SCH (20:55)
[2022-11-02] MEDS: amLODIPine 5 MG Tab PO SCH (20:56)
[2022-11-02] MEDS: Melatonin 3 MG Tab PO SCH (20:56)
[2022-11-02] MEDS: traZODone 50 MG Tab PO SCH (20:57)
[2022-11-02] MEDS: Insulin Glargine,Human Rec. Analog 100 Units/ML 3 ML Pen SUBCUT SCH (20:58)
[2022-11-02] MEDS: Lidocaine 5% 700 MG Patch TOP SCH (21:15)
[2022-11-03] MEDS: Acetaminophen/Codeine 300-30 MG Tab PO PRN ×2 (04:32→10:49)
[2022-11-03] MEDS: Formoterol/Mometasone 200-5 MCG 8.8 GM Inhaler IH SCH ×2 (07:05→20:56)
[2022-11-03] MEDS: Pantoprazole 40 MG Tab.CR PO SCH (09:07)
[2022-11-03] MEDS: Metoprolol Tartrate 50 MG Tab PO SCH ×2 (09:08→20:59)
[2022-11-03] MEDS: Furosemide 20 MG Tab PO SCH (09:08)
[2022-11-03] MEDS: atorvaSTATin 20 MG Tab PO SCH (09:08)
[2022-11-03] MEDS: Calcium Carbonate/Vitamin D3 1500 MG-400 Units Tab PO SCH ×2 (09:08→20:55)
[2022-11-03] MEDS: Apixaban 5 MG Tab PO SCH ×2 (09:09→20:56)
[2022-11-03] MEDS: Losartan 50 MG Tab PO SCH (09:09)
[2022-11-03] MEDS: Pramipexole 0.5 MG Tab PO SCH (09:10)
[2022-11-03] MEDS: Amoxicillin/Clavulanate K 875-125 MG Tab PO SCH ×2 (09:10→20:55)
[2022-11-03] MEDS: Ketoconazole 2% Crm 30 GM Tube TOP SCH (09:10)
[2022-11-03] MEDS: Insulin Lispro 100 Unit/ML 3 ML KwikPen SUBCUT SCH ×4 (09:11→21:05)
[2022-11-03] MEDS: Cholecalciferol (Vitamin D3) 25 MCG Tab PO SCH (09:16)
[2022-11-03] MEDS: Timolol Maleate 0.5% Ophth Soln 5 ML Bottle EYEBOTH SCH (09:16)
[2022-11-03] MEDS: Multivitamins with Iron/Calcium/Folic Acid/Minerals Tab PO SCH (09:16)
[2022-11-03] MEDS: Vitamin B Complex Tab PO SCH (09:16)
[2022-11-03] MEDS: Tamsulosin 0.4 MG Cap.ER PO SCH (20:57)
[2022-11-03] MEDS: Escitalopram 10 MG Tab PO SCH (20:58)
[2022-11-03] MEDS: Aspirin 81 MG Tab.EC PO SCH (20:58)
[2022-11-03] MEDS: Melatonin 3 MG Tab PO SCH (21:02)
[2022-11-03] MEDS: amLODIPine 5 MG Tab PO SCH (21:02)
[2022-11-03] MEDS: traZODone 50 MG Tab PO SCH (21:02)
[2022-11-03] MEDS: Lidocaine 5% 700 MG Patch TOP SCH (21:02)
[2022-11-03] MEDS: Insulin Glargine,Human Rec. Analog 100 Units/ML 3 ML Pen SUBCUT SCH (21:05)
[2022-11-04] MEDS: Formoterol/Mometasone 200-5 MCG 8.8 GM Inhaler IH SCH (07:28)
[2022-11-04] MEDS: Insulin Lispro 100 Unit/ML 3 ML KwikPen SUBCUT SCH ×2 (08:15→12:06)
[2022-11-04] MEDS: Pantoprazole 40 MG Tab.CR PO SCH (08:16)
[2022-11-04] MEDS: Amoxicillin/Clavulanate K 875-125 MG Tab PO SCH (08:17)
[2022-11-04] MEDS: Calcium Carbonate/Vitamin D3 1500 MG-400 Units Tab PO SCH (08:17)
[2022-11-04] MEDS: Losartan 50 MG Tab PO SCH (08:18)
[2022-11-04] MEDS: Furosemide 20 MG Tab PO SCH (08:22)
[2022-11-04] MEDS: atorvaSTATin 20 MG Tab PO SCH (08:22)
[2022-11-04] MEDS: Apixaban 5 MG Tab PO SCH (08:22)
[2022-11-04] MEDS: Metoprolol Tartrate 50 MG Tab PO SCH (08:23)
[2022-11-04] MEDS: Pramipexole 0.5 MG Tab PO SCH (08:24)
[2022-11-04] MEDS: Multivitamins with Iron/Calcium/Folic Acid/Minerals Tab PO SCH (08:25)
[2022-11-04] MEDS: Vitamin B Complex Tab PO SCH (08:26)
[2022-11-04] MEDS: Cholecalciferol (Vitamin D3) 25 MCG Tab PO SCH (08:26)
[2022-11-04] MEDS: Ketoconazole 2% Crm 30 GM Tube TOP SCH (08:27)
[2022-11-04] MEDS: Timolol Maleate 0.5% Ophth Soln 5 ML Bottle EYEBOTH SCH (08:28)
[2022-11-04] MEDS: Acetaminophen/Codeine 300-30 MG Tab PO PRN (10:41)
[2022-11-04 14:17] VITALS: BP 120/52; PULSE 70
== END 2022-11-04 14:30 | disposition home or self-care (01) | DRG 690 ==
LOC: JP.ED 18:51 → JP.MS 21:27
PROVIDERS: ADMIT Internal Medicine; ATTEND Internal Medicine
DX: N30.01 Acute cystitis with hematuria (principal); G30.9 Alzheimer's disease, unspecified; B96.20 Unspecified Escherichia coli [E. coli] as the cause of diseases classified elsewhere; F02.80 Dementia in other diseases classified elsewhere, unspecified severity, without behavioral disturbance, psychotic disturbance, mood disturbance, and anxiety; E86.0 Dehydration; B36.9 Superficial mycosis, unspecified; E11.9 Type 2 diabetes mellitus without complications; I50.9 Heart failure, unspecified; J44.9 Chronic obstructive pulmonary disease, unspecified; G47.00 Insomnia, unspecified; H40.9 Unspecified glaucoma; H91.90 Unspecified hearing loss, unspecified ear; E78.00 Pure hypercholesterolemia, unspecified; G47.30 Sleep apnea, unspecified; M19.90 Unspecified osteoarthritis, unspecified site; Z96.642 Presence of left artificial hip joint; Z86.73 Personal history of transient ischemic attack (TIA), and cerebral infarction without residual deficits; Z79.01 Long term (current) use of anticoagulants; Z85.038 Personal history of other malignant neoplasm of large intestine; Z95.5 Presence of coronary angioplasty implant and graft; Z79.4 Long term (current) use of insulin; Z79.82 Long term (current) use of aspirin; Z79.899 Other long term (current) drug therapy; Z79.51 Long term (current) use of inhaled steroids; Z98.890 Other specified postprocedural states; Z85.53 Personal history of malignant neoplasm of renal pelvis; Z85.46 Personal history of malignant neoplasm of prostate; Z98.49 Cataract extraction status, unspecified eye; Z87.891 Personal history of nicotine dependence
CPT/HCPCS: 0241U; 36415; 51702; 51798; 73502; 80053; 82947; 83036; 83605; 85025; 94640; 96365; 97110; 97162; 97530; 71045; 71045-26; 80048; 81001; 87086; 87088; 87186; 93010; 96361; 99285; 99285-25; A9270-GY; J0696; J1170; J1815; J1815-GY; J1940; J7030; J7620

== ENCOUNTER 2023-06-03 17:12 | Emergency (ER) | payer OTHER, MEDICARE ==
[2023-06-03 18:15] VITALS: BP 176/79; PULSE 79
[2023-06-03 19:17] LABS: BASOPHILS ABSOLUTE AUTO 0.06 K/uL (0.00-0.10); BASOPHILS PERCENT AUTO 0.7 % (0.1-1.3); EOSINOPHILS ABSOLUTE AUTO 0.65 K/uL (0.00-0.40); EOSINOPHILS PERCENT AUTO 7.2 % (0.0-5.4); HEMATOCRIT 39.2 % (38.4-49.7); HEMOGLOBIN 12.1 g/dL (12.9-16.9); IMMATURE GRAN ABSOLUTE AUTO 0.05 K/uL (0.00-0.23); IMMATURE GRAN PERCENT AUTO 0.6 % (0.0-0.7); LYMPHOCYTES ABSOLUTE AUTO 0.75 K/uL (0.8-3.3); LYMPHOCYTES PERCENT AUTO 8.4 % (11.4-47.7); MEAN CORPUSCULAR HEMOGLOBIN 27.8 pg (31.6-35.5); MEAN CORPUSCULAR HGB CONC 30.9 g/dL (31.6-35.5); MEAN CORPUSCULAR VOLUME 90.1 fL (81.4-99.0); MONOCYTES ABSOLUTE AUTO 0.76 K/uL (0.20-0.90); MONOCYTES PERCENT AUTO 8.5 % (3.3-12.6); NEUTROPHILS PERCENT AUTO 74.6 % (40.0-78.1); PLATELET COUNT,PLT 273 K/uL (130-375); RED BLOOD CELL COUNT 4.35 M/uL (4.14-5.76)
[2023-06-03 19:32] LABS: BASE EXCESS VENOUS 10.1 mm/L; CARBOXYHEMOGLOBIN 2.4 % (0.0-1.6); METHEMOGLOBIN 0.5 %; O2 SATURATION VENOUS 40.6; OXYHEMOGLOBIN 39.4 %; PCO2 VENOUS 70.1 mm/Hg; PH,VENOUS 7.353 (7.350-7.450); PO2 VENOUS 27.8 mm/Hg; TOTAL HEMOGLOBIN 12.7 g/dL (13.5-18.0)
[2023-06-03 19:52] LABS: APPEARANCE,URINE CLEAR (CLEAR); BILIRUBIN,URINE NEGATIVE (NEGATIVE); COLOR,URINE YELLOW (YELLOW); GLUCOSE,URINE NEGATIVE (NEGATIVE); KETONES,URINE NEGATIVE (NEGATIVE); LEUKOCYTE ESTERASE,URINE NEGATIVE (NEGATIVE); NITRITE,URINE NEGATIVE (NEGATIVE); OCCULT BLOOD,URINE TRACE-INTACT (NEGATIVE); PH,URINE 6.5 (5.0-8.0); PROTEIN,URINE 100 mg/dL (NEGATIVE); UROBILINOGEN,URINE 0.2 EU/dL (0.2-1.0)
[2023-06-03 19:57] LABS: AMORPHOUS SEDIMENT,URINE NOT SEEN; BACTERIA,URINE NOT SEEN; EPITHELIAL CELLS,URINE NOT SEEN; MUCUS,URINE NOT SEEN; RBC,URINE 0-5 (0-5); WBC,URINE 0-5 (0-5)
[2023-06-03 19:58] LABS: A/G RATIO 0.9 (1.2-2.2); ALANINE AMINOTRANSFERASE,ALT 24 U/L (12-78); ALBUMIN 3.5 g/dL (3.4-5.0); ALKALINE PHOSPHATASE 129 U/L (46-116); ASPARTATE AMNIOTRANSFERASE,AST 29 U/L (15-37); BILIRUBIN TOTAL 0.4 mg/dL (0.2-1.0); BLOOD UREA NITROGEN,BUN 24 mg/dL (7-18); C-REACTIVE PROTEIN 1.92 mg/dL (0.0-0.3); CARBON DIOXIDE,CO2 35 mmol/L (21-32); CHLORIDE,CL 99 mmol/L (100-108); EST CRCL DRUG DOSING (CG) 62.86 mL/min; ESTIMATED GFR 77 mL/min (>60); GLUCOSE RANDOM 147 mg/dL (74-106); POTASSIUM,K 3.9 mmol/L (3.6-5.2); PRO B-TYPE NATRIUR PEPT,BNPPRO 828 pg/mL (5-450); PROTEIN TOTAL,TP 7.5 g/dL (6.4-8.2); SODIUM,NA 139 mmol/L (140-148); TROPONIN I HIGH SENSITIVITY 31.6 pg/mL (<=60.3)
[2023-06-03 19:59] LABS: ANION GAP 8.9 mmol/L (5.0-14.0)
[2023-06-03 20:00] LABS: CALCIUM 13.8 mg/dL (8.5-10.1)
== END 2023-06-03 20:16 | disposition home or self-care (01) ==
LOC: JP.ED 17:12
DX: J44.9 Chronic obstructive pulmonary disease, unspecified (principal); I11.0 Hypertensive heart disease with heart failure; I50.9 Heart failure, unspecified; R41.0 Disorientation, unspecified; F03.90 Unspecified dementia, unspecified severity, without behavioral disturbance, psychotic disturbance, mood disturbance, and anxiety; E11.65 Type 2 diabetes mellitus with hyperglycemia; E78.00 Pure hypercholesterolemia, unspecified; Z86.73 Personal history of transient ischemic attack (TIA), and cerebral infarction without residual deficits; Z95.5 Presence of coronary angioplasty implant and graft; Z79.82 Long term (current) use of aspirin; Z79.4 Long term (current) use of insulin; Z79.899 Other long term (current) drug therapy
CPT/HCPCS: 36415; 71046; 71046-26; 80053; 81001; 82803; 83880; 84484; 85025; 86140; 99284